=== PATIENT | female | born 1985 | race Caucasian/White ===

== ENCOUNTER 2017-12-23 18:54 | Emergency (ER) | payer OTHER, SELFPAY ==
[2017-12-23 18:55] VITALS: BP 136/83; PULSE 74; RESP 18; TEMP 36.9; O2SAT 100; BMI 41.0
--- NOTE | 2017-12-23 19:07 | EKG12_ITS ---
Test Reason : CP Blood Pressure : / mmHG Vent. Rate : 060 BPM Atrial Rate : 060 BPM P-R Int : 156 ms QRS Dur : 090 ms QT Int : 402 ms P-R-T Axes : 022 048 027 degrees QTc Int : 402 ms Normal sinus rhythm Normal ECG Confirmed by SELIN MOSS, JOSEMANUEL ([id number]), supervising editor trailer CHLOÉ SHI ([id number]) on 12/25/2017 2:47:59 PM Referred By: DR CANTU Confirmed By:JOSEMANUEL SMALLWOOD MD
--- NOTE | 2017-12-23 19:11 | ED.RN ---
NO OLD EKGS IN MUSE.
--- NOTE | 2017-12-23 19:30 | RAD_ITS ---
STUDY: X-RAY CHEST REASON FOR EXAM: Female, 32 years old. Chest pain and weakness. TECHNIQUE: Single AP portable view of the chest. COMPARISON: Prior chest radiograph of October 21, 2009 FINDINGS: The lungs are clear and expanded. There is no demonstrated pleural abnormality. Normal size heart. Normal mediastinum and sid. Normal visualized pulmonary arteries. Normal visualized aortic arch and descending thoracic aorta. Normal visualized thoracic spine. Normal visualized ribs, clavicles, and shoulders. There is no demonstrated abnormality of the visualized soft tissue structures of the upper abdomen. RAD/Chest 1 View (Portable) IMPRESSION: Normal x-ray examination of the chest. Electronically Signed: Alexa Amador MD at 19:53 EDT , Service support ,
[2017-12-23 19:48] LABS: Absolute Neutrophil Count 4.3 X10^3/uL (2.0-7.7); Basophil# 0.04 X10^3/uL; Basophil% 0.5 % (0-1); Eosinophil# 0.12 X10^3/uL; Eosinophils% 1.6 % (0-5); Hematocrit 41.3 % (37-47); Hemoglobin 13.2 g/dl (12.0-15.0); Mean Corpuscular Hgb 25.9 pg (27.0-32.0); Mean Corpuscular Volume 81.1 fL (81-99); Mean Platelet Vol. 9.6 fl (6.2-12.0); Monocyte# 0.53 X10^3/uL; Monocyte% 6.9 % (0-10); Neutrophil # 4.32 X10^3/uL (2.7-7.7); Neutrophil % 55.9 % (47-70); Platelet Count 302 K/mm3 (150-450); RBC Distribution Width CV 14.3 % (11.6-14.6); RBC Distribution Width SD 42.3 fl (35.1-43.9); Red Blood Count 5.09 M/mm3 (4.2-5.4); White Blood Count 7.7 K/mm3 (4.4-11.0)
[2017-12-23 19:51] LABS: POSITIVE COUNT NO; POSITIVE DIFFERENTIAL NO; POSITIVE MORPHOLOGY NO
[2017-12-23 19:55] LABS: D-Dimer Quantitative (DVT/PE) 0.34 FEU/ug/m (0.27-0.49)
[2017-12-23 20:01] LABS: Anion Gap 7 (5-15); BUN 17 mg/dL (7-18); BUN/Creat Ratio 17.4 RATIO (10-20); Calcium,Total 9.3 mg/dL (8.5-10.1); Chloride 105 mmol/L (98-107); Creatinine, Serum 0.98 mg/dL (0.55-1.02); EST Glomerular Filtration Rate 71 mL/min (>60); Est Glom Filt Rate - Afr Amer 86 mL/min (>60); Estimated Creatinine Clearance 60.29 ml/min; Glucose 84 mg/dL (74-106); Potassium 3.8 mmol/L (3.5-5.1); Sodium Level 139 mmol/L (136-145)
[2017-12-23 20:06] LABS: Pregnancy, Serum, hCG Quali. NEGATIVE Negative (0-9 Nonpreg)
[2017-12-23] MEDS: Ketorolac 30 MG/ML Syringe IV (20:18)
[2017-12-23 20:20] VITALS: BP 128/83; PULSE 50; RESP 18; O2SAT 98
[2017-12-23 21:15] VITALS: BP 106/73; PULSE 64; RESP 18; O2SAT 96
--- NOTE | 2017-12-23 21:46 | ED.VISSUMM ---
- ER Visit Summary Date of Service: 12/23/17 Chief Complaint: Chest pain History of Present Illness: The patient is a 32 F reports onset of chest pain around 415 this afternoon. She points to the area just along the right sternal border. She describes as an aching with occasional sharp pain. Is worse when she sits forward or with exertion. She was short of breath with bowel that is currently resolved. She is at work at the time but does not remember lifting or twisting abnormally. Past history significant for asthma. She denies any recent asthma flares. Physical Examination: Vital signs are unremarkable. Patient sitting upright in bed no acute distress. She speaking full sentences. Head and neck examination is normal. Heart is regular rate and rhythm. Lung sounds are clear with good air movement bilaterally. She has reproducible tenderness along the right sternal border. There is no crepitus. Abdomen is soft nontender. Lower external examination reveals no significant tenderness or edema. Test Results: EKG is sinus at 60 with no sign of acute ischemia. Chest x-ray is unremarkable. CBC and chemistry studies are normal. Troponin is less than 0.015. D-dimer 0.34. Emergency Department Course and Treatment: Patient was given IV Toradol. On repeat evaluation she is pain-free. I feel her pain represents chest wall pain. She be given some Toradol for home as needed. Return for any worsening symptoms or concerns. Treatment Plan: [] Disposition: Discharge Impression: Chest wall pain This note was generated with [employer] dictation software. It may contain incorrect words, spelling, and punctuation that were not noted in review of the chart prior to signing ED Disposition - Plan for ED Patient: Chief Complaint: Chest Pain Referrals: Angy Meyer DO [Primary Care Provider] -
--- NOTE | 2017-12-23 21:47 | ED.DEP ---
ED Disposition - Plan for ED Patient: Disposition: Home or Assisted Living Chief Complaint: Chest Pain Instructions: ED Strain Chest Wall Prescriptions: Ketorolac [Toradol] 10 mg PO Q6H PRN #14 tablet PRN Reason: Pain Referrals: Angy Meyer DO [Primary Care Provider] - 1 Week if not improving
[2017-12-23 21:55] VITALS: BP 108/65; PULSE 62; RESP 18; O2SAT 98
== END 2017-12-23 21:56 | disposition home or self-care (01) ==
PROVIDERS: Emergency Provider Emergency Medicine; Family Provider Family Medicine; PCP Family Medicine
DX: R07.89 Other chest pain (principal); R06.00 Dyspnea, unspecified; J45.909 Unspecified asthma, uncomplicated; Z79.899 Other long term (current) drug therapy; Z87.891 Personal history of nicotine dependence
CPT/HCPCS: 71045; 80048; 84484; 84703; 85025; 85379; 93005; 96374; 99284; A4216

== ENCOUNTER → 2018-06-23 11:11 | Outpatient (CLI) | payer OTHER, SELFPAY ==
[2018-06-23 16:12] LABS: T3 Total - Triiodothyronine 1.22 ng/mL (0.6-1.81)
[2018-06-23 16:16] LABS: T4 Free Direct 1.08 ng/dL (0.76-1.46); Thyroid Stim Hormone (TSH) 1.91 uIU/mL (0.358-3.74)
--- OUTSIDE RECORDS SUMMARY | 2018-08-09 14:04 | XMS RPT_ITS ---
:1985 Author Organization [facility] Care Team Providers Name Role Phone Sarbjit Escalona Admitting Unavailable Sarbjit Escalona Attending Unavailable No Doctor Assigned, Nodr Primary Care Unavailable Angy Meyer Attending Unavailable Angy Meyer Primary Care Unavailable Angy Meyer Primary Care Unavailable Marianela Figueroa Attending Unavailable PROBLEMS PROBLEMS DATE TYPE CONDITION / CODE ATTENDING STATUS SOURCE 12/29/2017 Unknown R07.9 - Chest Marianela Figueroa Active [place] pain, unspecified Community / R07.9(ICD-10) Hospital Repository PROCEDURES PROCEDURES No Procedure Records FoundRESULTS RESULTS T3 TOTAL - TRIIODOTHYRONINE Collected: 06/23/2018 Status: F Source: [place] 11:13 AM [facility] REPOSITORY TYPE CODE TESTS RESULT OUT OF RANGE REFERENCE UNITS LAB L501.9186 0.6-1.81 ng/mL Normal T3 Total 1.22 Performed By: #### L501.9186 #### [place] [facility] [address] [place], [address] THYROID STIM HORMONE Collected: 06/23/2018 Status: F Source: [place] (TSH) 11:13 AM [facility] REPOSITORY TYPE CODE TESTS RESULT OUT OF RANGE REFERENCE UNITS LAB L501.9520 0.358-3.74 uIU/mL Normal TSH 1.91 Performed By: #### L501.9520, L506.0400 #### [facility] [address] [place], [address] T4 FREE DIRECT Collected: 06/23/2018 Status: F Source: [place] 11:13 AM [facility] REPOSITORY TYPE CODE TESTS RESULT OUT OF RANGE REFERENCE UNITS LAB L506.0400 0.76-1.46 ng/dL Normal T4 FREE 1.08 DIRECT Performed By: #### L501.9520, L506.0400 #### [facility] [address] [place], [address] 12 LEAD ELECTROCARDIOGRAM Observed: 12/28/2017 Status: F Source: [place] 8:59 AM [facility] Cardiovascular Services [address] [place] [address] 12 Lead EKG 12/23/17 1906 MR#: [id number] Acct: [id number] Name: MINOO RUTHERFORD Rep #: [id number] : 1985 32 From: Yonny Smallwood MD Attending Dr: Status: DEP ER Ordering Dr: Provider, Ed P. Date: 12/23/17 Location: ED Sex: F C Admitted: Test Reason : CP Blood Pressure : / mmHG Vent. Rate : 060 BPM Atrial Rate : 060 BPM P-R Int : 156 ms QRS Dur : 090 ms QT Int : 402 ms P-R-T Axes : 022 048 027 degrees QTc Int : 402 ms Normal sinus rhythm Normal ECG Confirmed by SELIN MOSS, YONNY ([id number]), editor publications CHLOÉ SHI ([id number]) on 12/25/2017 2:47:59 PM Referred By: DR FIGUEROA Confirmed By:YONNY SMALLWOOD MD 12/25/17 1448 Date Yonny Smallwood MD CC: ED PHYSICIAN PROVIDER; Marianela Figueroa MD; Angy Cazares EMERGENCY DEPARTMENT Observed: 12/24/2017 Status: F Source: [place] SUMMARY 12:22 AM [facility] REPOSITORY [facility] Medical Records Department [address] [place] [address] Emergency Department Summary 12/23/17 2146 MR#: [id number] Acct: [id number] Name: MINOO RUTHERFORD Rep #: [id number] : 1985 32 From: Marianela Figueroa MD PCP: Angy Meyer DO Status: DEP ER - ER Visit Summary Date of Service: 12/23/17 Chief Complaint: Chest pain History of Present Illness: The patient is a 32 F reports onset of chest pain around 415 this afternoon. She points to the area just along the right sternal border. She describes as an aching with occasional sharp pain. Is worse when she sits forward or with exertion. She was short of breath with bowel that is currently resolved. She is at work at the time but does not remember lifting or twisting abnormally. Past history significant for asthma. She denies any recent asthma flares. Physical Examination: Vital signs are unremarkable. Patient sitting upright in bed no acute distress. She speaking full sentences. Head and neck examination is normal. Heart is regular rate and rhythm. Lung sounds are clear with good air movement bilaterally. She has reproducible tenderness along the right sternal border. There is no crepitus. Abdomen is soft nontender. Lower external examination reveals no significant tenderness or edema. Test Results: EKG is sinus at 60 with no sign of acute ischemia. Chest x-ray is unremarkable. CBC and chemistry studies are normal. Troponin is less than 0.015. D-dimer 0.34. Emergency Department Course and Treatment: Patient was given IV Toradol. On repeat evaluation she is pain-free. I feel her pain represents chest wall pain. She be given some Toradol for home as needed. Return for any worsening symptoms or concerns. Treatment Plan: [] Disposition: Discharge Impression: Chest wall pain This note was generated with [employer] dictation software. It may contain incorrect words, spelling, and punctuation that were not noted in review of the chart prior to signing ED Disposition - Plan for ED Patient: Chief Complaint: Chest Pain Referrals: Angy Meyer DO [Primary Care Provider] - What to do if you have Problems For any increased pain, shortness of breath, bleeding, nausea or vomiting, chest pain, or any unexpected problems, contact your Primary Care Provider. Call [facility] ([phone]) or report to the closest Emergency Room. Call 911 if necessary. 12/24/17 0022 <Electronically signed by Marianela Figueroa MD> Date Marianela Figueroa MD Cosigner Signature (If Indicated): Date CC: Angy Meyer DO DISCHARGE INSTRUCTION Observed: 12/23/2017 Status: F Source: [place] 9:49 PM [facility] REPOSITORY [facility] Medical Records Department [address] [place] [address] Discharge Instruction 12/23/172146 MR#: [id number] Acct: [id number] Name: MINOO RUTHERFORD Rep #: [id number] : 1985 32 From: Marianela Figueroa MD PCP: Angy Meyer DO Status: REG ER ED Disposition - Plan for ED Patient: Disposition: Home or Assisted Living Chief Complaint: Chest Pain Instructions: ED Strain Chest Wall Prescriptions: Ketorolac [Toradol] 10 mg PO Q6H PRN #14 tablet PRN Reason: Pain Referrals: Angy Meyer DO [Primary Care Provider] - 1 Week if not improving What to do if you have Problems For any increased pain, shortness of breath, bleeding, nausea or vomiting, chest pain, or any unexpected problems, contact your Primary Care Provider. Call [facility] ([phone]) or report to the closest Emergency Room. Call 911 if necessary. 12/23/172148 <Electronically signed by Marianela Figueora MD> Date Marianela Figueroa MD Cosigner Signature (If Indicated): Date CC: Angy Meyer DO CBC W/DIFF, AUTOMATED Collected: 12/23/2017 Status: F Source: [place] 7:25 PM [facility] REPOSITORY TYPE CODE TESTS RESULT OUT OF RANGE REFERENCE UNITS LAB L100.1000 4.4-11.0 K/mm3 Normal WBC 7.7 LAB L100.1200 4.2-5.4 M/mm3 Normal RBC 5.09 LAB L100.1300 12.0-15.0 g/dl Normal HGB 13.2 LAB L100.1400 37-47 % Normal HCT 41.3 LAB L100.1500 81-99 fL Normal MCV 81.1 LAB L100.1600 27.0-32.0 pg Low MCH 25.9 LAB L100.1700 32-36 g/gl Normal MCHC 32.0 LAB L100.1810 11.6-14.6 % Normal RDW CV 14.3 LAB L100.1820 35.1-43.9 fl Normal RDW SD 42.3 LAB L100.1900 150-450 K/mm3 Normal PLT 302 LAB L100.2000 6.2-12.0 fl Normal MPV 9.6 LAB L100.2100 47-70 % Normal NEUT% 55.9 LAB L100.2200 19-41 % Normal LY% 35.0 LAB L100.2300 0-10 % Normal MONO% 6.9 LAB L100.2400 0-5 % Normal EO% 1.6 LAB L100.2500 0-1 % Normal BASO% 0.5 LAB L100.2550 0.0-0.9 % Normal IM GRAN % 0.100 Result Comment: IG% - Immature Granulocytes (promyelocytes, myelocytes and metamyelocytes) > 1% indicates that a LEFT SHIFT is Present. LAB L100.2620 2.0-7.7 X10 3/uL Normal Absolute Neut 4.3 LAB L100.2720 0.83-4.51 X10 3/ul Normal Absolute Lymph 2.70 Performed By: #### L100.0100, L500.2500, L501.4010 #### [facility] [address] [place], [address] BASIC METABOLIC Collected: 12/23/2017 Status: F Source: [place] PROFILE (BMP) 7:25 PM [facility] REPOSITORY TYPE CODE TESTS RESULT OUT OF RANGE REFERENCE UNITS LAB L501.0100 74-106 mg/dL Normal GLU 84 Result Comment: Please note revised GLUCOSE reference range effective 2017. LAB L501.1000 7-18 mg/dL Normal BUN 17 LAB L501.1100 0.55-1.02 mg/dL Normal CREAT,SERUM 0.98 Result Comment: The validity of the calculated GFR AND GFRAA in patients over 70 years has not been determined. Clinical correlation is essential. LAB L501.1110 >60 mL/min Normal EST GFR 71 Result Comment: Non- GFR Calc LAB L501.1115 >60 mL/min Normal EST GFR - AA 86 Result Comment: GFR Calc LAB L501.1255 ml/min Normal Estimated CRCL 60.29 LAB L501.1300 10-20 RATIO Normal BUN/CRE 17.4 LAB L501.2200 8.5-10 mg/dL Normal .1 CA 9.3 LAB L501.5300 136-14 mmol/L Normal 5 NA 139 LAB L501.5600 3.5-5. mmol/L Normal 1 K 3.8 LAB L501.5900 98-107 mmol/L Normal CL 105 LAB L501.6100 21.0-3 mmol/L Normal 2.0 CO2 27.0 LAB L501.6200 5-15 Normal GAP 7 Performed By: #### L100.0100, L500.2500, L501.4010 #### [facility] [address] [place], [address] TROPONIN-I Collected: 12/23/2017 Status: F Source: [place] 7:25 PM [facility] REPOSITORY TYPE CODE TESTS RESULT OUT OF RANGE REFERENCE UNITS LAB L501.4010 <0.045 ng/mL Normal < 0.015 TROPONIN-I Result Comment: TROPONIN-I EXPECTED VALUES <0.045 Negative 0.045 - 0.590 Consistent with Cardiac Damage > OR = 0.600 Critical Value Not every elevated troponin is indicative of UT. These values should be used with clinical judgement in examining the patient's clinical picture for diagnosis. To establish a diagnosis of UT versus myocardial injury, there must be a demonstrated rise and/or fall in the troponin values, in addition to ischemic symptoms, EKG changes, new regional wall motion abnormality, and/or angiographical evidence. PLEASE NOTE: REFERENCE RANGES EDITED 17 Performed By: #### L100.0100, L500.2500, L501.4010 #### [facility] [address] [facility] [place], [address] D-DIMER QUANTITATIVE Collected: 12/23/2017 Status: F Source: [place] (DVT/PE) 7:25 PM [facility] REPOSITORY TYPE CODE TESTS RESULT OUT OF RANGE REFERENCE UNITS LAB L300.8000 0.27-0.49 FEU/ug/m Normal D-DIMER 0.34 QUANT Result Comment: NORMAL D-Dimer level (<0.50) indicates no DVT or PE. Performed By: #### L300.8000 #### [facility] [address] [facility] [place], [address] ,SERUM,HCG QUALI. Collected: Status: F Source: [place] 12/23/2017 7:25 PM [facility] REPOSITORY TYPE CODE TESTS RESULT OUT OF REFERENCE UNITS RANGE LAB L700.7000 0-9 Nonpreg Negative Normal HCGSQUAL NEGATIVE LAB L700.6700 =>Qualitative mIU/mL Normal HCG Qual < 1 triggr Performed By: #### L700.6800 #### [facility] [address] [place], [address] CHEST 1 VIEW Observed: 12/23/2017 Status: F Source: [place] (PORTABLE) 7:08 PM [facility] REPOSITORY [facility] Imaging Services [address] [place] [address] Chest 1 View (Portable) MR#: [id number] Acct: [id number] Name: MINOO RUTHERFORD Rep #: [id number] : 1985 F 32 From: Alexa Amador MD PCP: Angy Meyer DO Status: REG ER Study: Chest 1 View (Portable) Date of Exam: 12/23/17 Exam# [id number] Ordering Dr: Marianela Figueroa MD STUDY: X-RAY CHEST REASON FOR EXAM: Female, 32 years old. Chest pain and weakness. TECHNIQUE: Single AP portable view of the chest. COMPARISON: Prior chest radiograph of October 21, 2009 FINDINGS: The lungs are clear and expanded. There is no demonstrated pleural abnormality. Normal size heart. Normal mediastinum and sid. Normal visualized pulmonary arteries. Normal visualized aortic arch and descending thoracic aorta. Normal visualized thoracic spine. Normal visualized ribs, clavicles, and shoulders. There is no demonstrated abnormality of the visualized soft tissue structures of the upper abdomen. RAD/Chest 1 View (Portable) IMPRESSION: Normal x-ray examination of the chest. Electronically Signed: Alexa Amador MD at 19:53 EDT , Service support , CC: Marianela Figueroa MD; Angy Meyer DO Real Property Appraiser: Signed ALLERGIES ALLERGIES DATE TYPE / CODE NAME / CODE REACTION SEVERITY SOURCE 12/23/2017 Drug No Known Unknown [place] Allergy/416 Allergies/A076106 [facility] 313368(SNOM 388(RXNORM) [facility] ED CT) Repository Drug/712682 No Known [facility] CT) Allergies System Repository ENCOUNTERS ENCOUNTERS ADMIT/DISCHARGE ACCOUNT ADMITTING ENCOUNTER LOCATION SOURCE NUMBER CLASS 06/23/2018 [id number] Ambulatory [facility] ing:BFHLAB Repository 04/14/2018/04/14/20 [id number] [facility] ing:CD:[id number] Health System 7151Room: Repository CD:[id number] 12/23/2017/12/24/19 [id number] Emergency [address] ing:ED Repository PAYERS PAYERS ENCOUNTER GUARANTOR PAYER SUBSCRIBER SOURCE 06/23/2018 MINOO Pereira Primary Insurance:R MINOO C [place] [id number] JULIANA VALERIE [id number] PLANTDOB: [facility], Number: [id number] [address]Ius: [id number] Repository Date:[id number] BOX (HP) [address] [place] [phone]: 06/23/2018 Secondary NOT GIVENUNK [place] Insurance:SELF PAY [facility] Number: Effective Repository Date:2018-06-23 04/14/2018 MINOO Primary MINOO Camargo PLANTDOB: [facility]: [facility] Number: Effective [id number] System JULIANA Date:2018-04-14 - JULIANA Repository [facility], [id number] [place], [place] Name:CD:[id number] [address] [place] [phone]: [address] [place], [place] [address]Tel: [id number]: (HP) (HP) () 12/23/2017 MINOO C Primary Insurance:UMR MINOO C [place] [id number] JULIANA VALERIE [id number] PLANTDOB: [facility], Number: [id number] [facility] [address]Jip: [id number] Repository Date:[id number] BOX (HP) [address] [place] [phone]: 12/23/2017 Secondary NOT GIVENUNK [place] Insurance:SELF PAY [facility] Number: Effective Repository Date:2017-12-23
== END ==
PROVIDERS: Family Provider Family Medicine; PCP Family Medicine; Visit Provider Family Medicine
DX: R53.83 Other fatigue (principal)
CPT/HCPCS: 36415; 84439; 84443; 84480

== ENCOUNTER → 2020-01-12 10:46 | Outpatient (CLI) | payer OTHER, SELFPAY ==
[2020-01-12 12:42] LABS: Absolute Lymphocyte Count 1.86 X10^3/uL (0.83-4.51); Absolute Neutrophil Count 4.9 X10^3/uL (2.0-7.7); Basophil# 0.06 X10^3/uL; Basophil% 0.8 % (0-1); Eosinophil# 0.09 X10^3/uL; Eosinophils% 1.2 % (0-5); Hematocrit 41.9 % (37-47); Hemoglobin 12.8 g/dL (12.0-15.0); Lymphocyte # 1.86 X10^3/ul (4.0); Lymphocyte % 24.8 % (19-41); Mean Corp Hgb Conc 30.5 g/dL (32-36); Mean Corpuscular Hgb 25.4 pg (27.0-32.0); Mean Corpuscular Volume 83.1 fL (81-99); Monocyte# 0.58 X10^3/uL; Monocyte% 7.7 % (0-10); NRBC Flagged by Analyzer 0 % (0-5); Neutrophil # 4.89 X10^3/uL (2.7-7.7); Neutrophil % 65.2 % (47-70); Platelet Count 326 K/mm3 (150-450); RBC Distribution Width CV 14.3 % (11.6-14.6); RBC Distribution Width SD 42.5 fl (35.1-43.9); Red Blood Count 5.04 M/mm3 (4.2-5.4); White Blood Count 7.5 K/mm3 (4.4-11.0)
[2020-01-12 13:34] LABS: ALB/GLOB Ratio 0.9 RATIO (0.9-2.4); AST(SGOT) 15 U/L (15-37); Alanine Aminotransfer ALT/SGPT 26 U/L (13-56); Albumin, Serum 3.6 g/dL (3.2-5.0); Alkaline Phosphatase 71 U/L (45-117); Anion Gap 3 (5-15); BUN 13 mg/dL (7-18); Calcium,Total 8.7 mg/dL (8.5-10.1); Chloride 107 mmol/L (98-107); Creatinine, Serum 1.08 mg/dL (0.55-1.02); EST Glomerular Filtration Rate 62 mL/min (>60); Est Glom Filt Rate - Afr Amer 75 mL/min (>60); Glucose 88 mg/dL (74-106); Iron 63 ug/dL (50-170); Potassium 3.6 mmol/L (3.5-5.1); Protein, Total 7.6 g/dL (6.4-8.2); Sodium Level 138 mmol/L (136-145)
[2020-01-12 15:45] LABS: Vitamin B12 > 2000 pg/mL (211-911)
== END ==
PROVIDERS: PCP Family Medicine; Visit Provider Family Medicine
DX: D64.9 Anemia, unspecified (principal); R53.83 Other fatigue; Z51.81 Encounter for therapeutic drug level monitoring
CPT/HCPCS: 36415; 80053; 82607; 83540; 85025

== ENCOUNTER → 2020-06-19 17:28 | Outpatient (CLI) | payer OTHER, SELFPAY | PROVIDERS: PCP Family Medicine; Referring Provider Family Medicine; Visit Provider Family Medicine | DX: Z20.828 Contact with and (suspected) exposure to other viral communicable diseases (principal) | CPT/HCPCS: 87635; C9803; U0003 ==

== ENCOUNTER → 2020-12-04 | Outpatient (CLI) | payer OTHER, SELFPAY ==
[2020-12-04 14:54] VITALS: BMI 41.1
[2020-12-08 14:24] LABS: HPV APTIMA, High Risk Negative (Negative)
== END | disposition home or self-care (01) ==
LOC: LABSPEC 16:19
PROVIDERS: PCP Family Medicine; Visit Provider Nurse Practitioner Women's Health
DX: Z12.4 Encounter for screening for malignant neoplasm of cervix (principal)
CPT/HCPCS: 87624; 88175; G0145

== ENCOUNTER 2021-12-04 15:30 | Outpatient (RCR) | payer OTHER, SELFPAY ==
--- NOTE | 2021-11-13 17:06 | HP.PTEVAL ---
Patient's Visit Information MINOO RUTHERFORD is a 36 year old F referred to Physical Therapy by Dr. Angy Meyer DO with a diagnosis of R knee pain. Date of Evaluation: 11/13/21 Physical Therapist: PHILIP De PazT, OCS, CSCS - Visit Plan Frequency: 2x /Week Duration: 4-6 Weeks Plan: 2x/week for 4-6 weeks for. 1. rollout and stretch ITB and quad B. 2. strengthen hip stabs/quads and progress to HEP. 3. TENS with ice as needed. - Subjective R knee making noise and starting to hurt in the past week. Pain is medial knee adn patellar in description. It is intermittent and comfortable at rest. Worse with activity. 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 pain after work last couple days up to 7/10 and hurts for the evening. Sleeping well due to fatigue but it does hurt at bed time. Days she does not work is about 3/10. Basic ADls are getting done. Hobbies are not active. Standing and baking several hours will make her hurt. - Pain R knee anterior. Pain Intensity (Out of 10): 0 Pain Intensity Range: 0, 7 - Objective Walks without antalgia today but has hypermobile knees with excessive extension. Trasnfers I, Gait is I, steps are reciprocal without rail with some slight R knee pain descending. Tender to palpation R medial and lateral knee patella and into ITB R. Tightness obvious in R ITB and hip flexor. AROM B knees is full and symmetrical and without pain, some tightness end range of R knee flexion. Hips ext tight into extension at 5 degrees. Ankles are WNL ROM and flexibility. reflexes are 2/3 patella and achilles. Sensation LE WNL to gross light touch. r knee hurt to extend and weak with ext, flexion 4+/5 B. - bounce home, - ant drawer, - post sag, + R patellar grind., - varus and valgus. - Balance/Special Test Scores Lower Extremity Functional Score: 47 - Goals Goal 1:: Pain in R knee 2/10 at worst adn 75% better Goal Time Frame: 4-6 Weeks Goal 2:: Patient work 8 hour shift without increase in pain Goal Time Frame: 4-6 Weeks Goal 3:: LEFS score of 57 Goal Time Frame: 4-6 Weeks Goal 4:: I appro HEp to minimize future problems. Goal Time Frame: 4-6 Weeks - Rehabilitation Potential Physical Therapy Diagnosis: R knee PFS Rehabilitation Potential: Fair - Anticipated Interventions Patient/Client Instruction: Educate patient on: Condition, Plan of Care For the Purpose of:: To decrease pain, To increase ROM, To improve muscle performance and motor function, To increase tolerance to activity/condition/position, To improve ability of physical actions for home/community/work/leisure Therapeutic Exercise to Include: Strength training, Flexibilty training, Gait and locomotor training For the Purpose of:: To decrease pain, To decrease swelling/inflammation, To increase tolerance to activity/condition/position, To improve ability of physical actions for home/community/work/leisure, To improve gait and locomotor functions Manual Therapy Techniques to Include: Mobilization, Passive ROM, Soft tissue mobilization For the Purpose of:: To decrease pain, To increase ROM, To improve muscle performance and motor function, To increase tolerance to activity/condition/position, To improve ability of physical actions for home/community/work/leisure TENS: Yes Cryotherapy (ice pack, ice massage): Yes For the Purpose of:: To decrease pain, To improve muscle performance and motor function Thank you for the opportunity to evaluate your patient. For Medicare and Medicare HMO plans, please review the plan of care and approve it. It will need to be FAXED BACK to us at [phone] for Medicare purposes. For Medicare only, by signing this I certify the plan of care. Please let me know if there are questions or concerns regarding this plan of care. Physician Signature: Date:
--- NOTE | 2021-12-04 16:13 | HP.PTDCSUM_ITS ---
It has been my pleasure to treat MINOO RUTHERFORD referred by Dr. Angy Meyer DO, with the diagnosis of R knee pain for a total of 6 visit(s). Discharge Date: 12/04/21 Please see the following information for a summary of their discharge status. Subjective: Better adn worse. I am stronger. Pain is increasing. Working the last two days is tough. standing more than 15 minutes or walking increased pain. Pain is up to 6 /10 after work. Lingers after work but better with ice. Sleeping is fine. 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 Life at home is normal. Comfortable at rest. Short day today at work. R knee anterior. Pain Intensity (Out of 10): 0 % Improvement: 0 Objective/Function: Full aROM without increased pain. 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 Tender to touch medial knee joint line. - varus and valgus, - bounce home. Walks well today and steps reciprocal showing weakness R quad but functional. Overall patient appears stronger but is not feeling better. Recommend return to doctor for next medical step, further therapy or aquatic therapy should be considered if no other options. Goal 1:: Pain in R knee 2/10 at worst adn 75% better Goal Progress: Not Progressing Goal 2:: Patient work 8 hour shift without increase in pain Goal Progress: Not Progressing Goal 3:: LEFS score of 57 Goal Progress: Not Progressing Goal 4:: I appro HEp to minimize future problems. Goal Progress: Goal Met Plan: d/c Discharge Comments: Pt to contact doctor for next step.(MRI, ortho?) If there are questions or concerns regarding this patient's physical therapy, please feel free to call me at [phone]. Thank you for the referral of this patient. Sincerely, Ovi Hawk, DPT, OCS, CSCS Balance/Gait/Functional tests - Balance/Special Test Scores Lower Extremity Functional Score: 37
== END 2021-12-04 19:00 | disposition home or self-care (01) ==
LOC: PT 15:30
PROVIDERS: PCP Family Medicine; Referring Provider Family Medicine; Visit Provider Family Medicine
DX: M25.561 Pain in right knee (principal)
CPT/HCPCS: 97014; 97110; 97161; 97164; G0283

== ENCOUNTER → 2022-06-13 | Outpatient (CLI) | payer OTHER, SELFPAY ==
--- NOTE | 2022-06-13 11:42 | BI_ITS ---
MAMMOGRAPHY - BILATERAL SCREENING REASON FOR EXAM: Female, 37 years old. Routine annual screening examination. PERTINENT HISTORY: Non-contributory. TECHNIQUE: Digital bilateral breast geetha (3D mammographic acquisition) in the CC and MLO projections. 2-D mediolateral oblique (MLO) and craniocaudad (CC) views of both breasts were obtained. CAD: Full Field Digital Mammography with Computer Added Detection was performed. COMPARISON: None. Baseline examination. FINDINGS: Breast Composition: The breasts are almost entirely fatty. There are no dominant masses or suspicious calcifications. No other significant abnormalities are identified. BI/SCRN MAMM (CAD)W/GEETHA BILAT IMPRESSION: Negative screening mammogram. Yearly followup mammogram recommended. (A) ASSESSMENT CATEGORY: BIRADS Category 1: Negative. A letter regarding these results will be sent to the patient by the facility within 30 days. Approximately 10% of breast cancers are not detected by mammography. A normal mammogram should not delay biopsy of a clinically suspicious abnormality. [id number] Electronically Signed: Maverick Baxter MD at 12:28 EST ,
== END | disposition home or self-care (01) ==
LOC: OPBI 11:41
PROVIDERS: PCP Family Medicine; Visit Provider Nurse Practitioner Women's Health
DX: Z12.31 Encounter for screening mammogram for malignant neoplasm of breast (principal)
CPT/HCPCS: 77063; 77067

== ENCOUNTER → 2022-08-07 | Outpatient (CLI) | payer OTHER, SELFPAY ==
[2022-08-07 15:32] LABS: Absolute Lymphocyte Count 2.15 X10^3/uL (0.83-4.51); Absolute Neutrophil Count 3.4 X10^3/uL (2.0-7.7); Basophil# 0.07 X10^3/uL; Basophil% 1.1 % (0-1); Eosinophil# 0.09 X10^3/uL; Eosinophils% 1.5 % (0-5); Hematocrit 42.1 % (37-47); Hemoglobin 12.9 g/dL (12.0-15.0); Lymphocyte # 2.15 X10^3/ul (0.83-4.51); Lymphocyte % 34.8 % (19-41); Mean Corp Hgb Conc 30.6 g/dL (32-36); Mean Corpuscular Hgb 25.2 pg (27.0-32.0); Mean Corpuscular Volume 82.4 fL (81-99); Mean Platelet Vol. 10.2 fl (6.2-12.0); Monocyte# 0.42 X10^3/uL; Monocyte% 6.8 % (0-10); NRBC Flagged by Analyzer 0 % (0-5); Neutrophil # 3.43 X10^3/uL (2.7-7.7); Neutrophil % 55.6 % (47-70); Platelet Count 350 K/mm3 (150-450); RBC Distribution Width CV 14.1 % (11.6-14.6); RBC Distribution Width SD 41.8 fl (35.1-43.9); Red Blood Count 5.11 M/mm3 (4.2-5.4); White Blood Count 6.2 K/mm3 (4.4-11.0)
[2022-08-07 15:54] LABS: Hemoglobin A1c 5.3 % (3.8-5.6)
[2022-08-07 16:13] LABS: AST(SGOT) 21 U/L (15-37); Alanine Aminotransfer ALT/SGPT 29 U/L (13-56); Albumin, Serum 3.8 g/dL (3.2-5.0); Alkaline Phosphatase 69 U/L (45-117); Anion Gap 8 (5-15); BUN 9 mg/dL (7-18); BUN/Creat Ratio 8.2 RATIO (10-20); Calcium,Total 8.7 mg/dL (8.5-10.1); Chloride 106 mmol/L (98-107); EST Glomerular Filtration Rate 60 mL/min (>60); Est Glom Filt Rate - Afr Amer 73 mL/min (>60); Ferritin 42 ng/mL (8-252); Globulin 3.8 g/dL (2.2-4.2); Glucose 102 mg/dL (74-106); Iron 53 ug/dL (50-170); Potassium 3.9 mmol/L (3.5-5.1); Protein, Total 7.6 g/dL (6.4-8.2); Sodium Level 137 mmol/L (136-145)
== END | disposition home or self-care (01) ==
LOC: BFHLAB 13:09
PROVIDERS: PCP Family Medicine; Visit Provider Family Medicine
DX: R42 Dizziness and giddiness (principal); E74.39 Other disorders of intestinal carbohydrate absorption; R10.9 Unspecified abdominal pain; D64.9 Anemia, unspecified
CPT/HCPCS: 36415; 80053; 82728; 83036; 83540; 85025

== ENCOUNTER → 2024-06-14 | Outpatient (CLI) | payer OTHER, SELFPAY ==
--- NOTE | 2024-06-14 16:08 | US_ITS ---
STUDY: ULTRASOUND OF THE FEMALE PELVIS - COMPLETE REASON FOR EXAM: Female, 39 years old. FIBROIDS LMP: March 19, 2024. TECHNIQUE: Transabdominal TECHNICAL QUALITY: Adequate. COMPARISON: None. FINDINGS: The uterus is anteverted and is in a midline position. The uterus measures 6.5 cm x 4.1 cm x 2.9 cm. Normal uterine cervix. The endometrium measures 1.9 mm in thickness, and is hyperechoic. There is no demonstrated endometrial mass. There is no demonstrated myometrial mass. I.U.D. - The patient does not have an I.U.D. The right ovary is visualized. The right ovary measures 4.1 cm x 2.2 cm x 1.6 cm. A dominant follicle is seen within the right ovary measuring 2 cm x 1.8 cm x 1.7 centimeters. There is no visualized right adnexal mass or complex lesion. There is normal arterial and normal venous vascularity. The left ovary is visualized. The left ovary measures 2.4 cm x 1.7 cm x 1.9 cm. There is no left ovarian cyst or ovarian mass. There is no visualized left adnexal mass or complex lesion. There is normal arterial and normal venous vascularity. There is no fluid in the cul-de-sac. The pre void volume of the bladder was 158 ml. US/Pelvic (Non ) IMPRESSION: A dominant follicle is seen within the right ovary measuring 2 cm x 1.8 cm x 1.7 cm. Electronically Signed: Maverick Baxter MD at 15:10 EST ,
== END | disposition home or self-care (01) ==
PROVIDERS: PCP Family Medicine; Referring Provider Nurse Practitioner Family; Visit Provider Nurse Practitioner Family
DX: N92.6 Irregular menstruation, unspecified (principal); N83.01 Follicular cyst of right ovary
CPT/HCPCS: 76856